=== PATIENT | female | born 1975 | race Caucasian/White ===

== ENCOUNTER 2023-03-12 08:56 | Outpatient (OUT) | payer OTHER, SELFPAY ==
[2023-03-12 09:42] LABS: Alanine Aminotransferase 19 U/L (14-59); Albumin Globulin Ratio 0.9; Albumin Level 3.4 g/dL (3.4-5.0); Alkaline Phosphatase 86 U/L (46-116); Anion Gap 10.1; Aspartate Amino Transferase 16 U/L (15-37); BUN Creatinine Ratio 23.7; Bilirubin Total 0.2 mg/dL (0.2-1.0); C Reactive Protein <0.2 mg/dL (<=1.0); Calcium 8.5 mg/dL (8.5-10.1); Carbon Dioxide 28.8 mmol/L (21.0-32.0); Chloride 103 mmol/L (98-107); Chol HDL Ratio 4.6; Cholesterol 181 mg/dL (<=200); Estimated GFR (African America >60 (>=60); Estimated GFR (Non-African Ame >60 (>=60); Glucose 90 mg/dL (74-106); HDL Cholesterol 39 mg/dL (40-60); Potassium 3.9 mmol/L (3.5-5.1); Sodium 138 mmol/L (136-145); Thyroid Stimulating Hormone 1.846 uIU/mL (0.358-3.740); Total Protein 7.4 g/dL (6.4-8.2); Triglycerides 151 mg/dL (<=150); VLDL CHOLESTEROL 30.2 mg/dL
[2023-03-12 11:34] LABS: Basophils Absolute Auto 0.1 10^3/uL (0.0-0.1); Basophils Percent Auto 0.9 % (0.2-2.0); Eosinophils Absolute Auto 0.1 10^3/uL (0.0-0.7); Eosinophils Percent Auto 2.1 % (0.9-7.0); Hemoglobin 12.3 g/dL (12.0-16.0); Immature Granulocytes Abs Auto 0.02 10^3/uL (0.00-0.03); Immature Granulocytes Pct Auto 0.3 % (0.0-0.5); Lymphocytes Absolute Auto 2.1 10^3/uL (1.2-3.8); Mean Corpuscular HGB Conc 32.4 g/dL (29.9-35.2); Mean Corpuscular Volume 86.4 fL (81.0-99.0); Mean Platelet Volume 9.3 fL (9.5-13.5); Monocytes Absolute Auto 0.4 10^3/uL (0.3-0.8); Monocytes Percent Auto 6.2 % (1.7-12.0); Neutrophils Percent Auto 59.5 % (43.0-75.0); Platelet Count 404 10^3/uL (150-450); Red Cell Distribution Width 13.4 % (11.0-15.0); White Blood Count 6.8 10^3/uL (4.0-11.0)
[2023-03-12 11:46] LABS: Erythrocyte Sedimentation Rate 51 mm/hr (<=20)
== END 2023-03-12 08:57 | disposition home or self-care (01) ==
LOC: LAB 09:00
PROVIDERS: PCP Family Medicine; Visit Provider Family Medicine
DX: Z00.00 Encounter for general adult medical examination without abnormal findings (principal); I10 Essential (primary) hypertension; M25.50 Pain in unspecified joint
CPT/HCPCS: 36415; 80053; 80061; 84443; 85025; 85652; 86140

== ENCOUNTER 2024-11-17 07:20 | Outpatient (OUT) | payer OTHER, SELFPAY ==
--- OUTSIDE RECORDS SUMMARY | 2024-11-17 07:25 | XMS_ITS | Encounter Summary ---
Author Organization [facility] Address [address] [place] [address] Care Team Providers Care Contract Modeler Name Role Phone Laure Leigh MD Primary Care Provider [phone] Reason for Visit * Reason Comments Med Refill Encounter Details Date Type Department Care Team (Late st Contact Info) Description 09/26/2023 Refill [facility] [address] [facility] [address] [place] [id number] Dc Arteaga DPM [address] [facility] [address] [place] [address] Achilles tendon pain Social History Tobacco Use Types Packs/Day Years Used Date Smoking Tobacco: Never Smokeless Tobacco: Never Alcohol Use Standard Drinks/Week Comments Yes 0 (1 standard drink = 0.6 oz pure alcohol) caffeine: occasional spark energy drink, coffee AUDIT-C Answer Date Recorded Q1: How often do you have a drink containing alc ohol? Monthly or less 07/15/2023 Q2: How many drinks containi ng alcohol do you have on a typical day when you are drinking? 1 or 2 07/15/2023 Q3: How often do you have si x or more drinks on one occasion? Never 07/15/2023 Comments Unknown Sex and Gender Information Value Date Recorded Sex Assigned at Not on file Legal Sex Female 7:25 PM EDT Gender Identity Not on file Sexual Orientation Not on file documented as of this encounter Miscellaneous Notes * Telephone Encounter - RT. Brayan Pagan - 09/26/2023 7:36 AM EDT Patient should contact office for refills. documented in this encounter Plan of Treatment Not on file documented as of this encounter Visit Diagnoses Diagnosis Achilles tendon pain documented in this encounter Care Teams Contract Modeler Relationship Specialty Start Date End Date Laure Leigh MD PCP - General Family Medicine 07/16/23 documented as of this encounter
--- OUTSIDE RECORDS SUMMARY | 2024-11-17 07:25 | XMS_ITS | Clinical Summary ---
Author Organization [facility] Address [address] [place] [address] Care Team Providers Care Forging Machine Operator Name Role Phone Laure Leigh MD Primary Care Provider [phone] Allergies Active Allergy Reactions Criticality Noted Date Comments Penicillins Anaphylaxis High 07/16/2023 Medications metoprolol succinate XL (Toprol-XL) 50 MG 24 hr tablet Take 50 mg by mouth Daily Do not crush or chew. Active Active Problems Problem Noted Date Diagnosed Date Fatty liver disease, nonalcoholic 07/16/2023 Family history of thyroid cancer 04/18/2016 Thyroid nodule 04/18/2016 Family History Medical History Relation Name Comments Heart disease Father Hypertension Father Cancer Maternal Grandmother Stroke Maternal Grandmother Hypertension Mother Thyroid cancer Mother Hypertension Other spouse Relation Name Status Comments Brother Alive Father Maternal Grandmother Mother Alive Other spouse Alive Sister Alive Son Alive x4 Social History Tobacco Use Types Packs/Day Years Used Date Smoking Tobacco: Never Smokeless Tobacco: Never Tobacco Cessation:Counseling Given: Not Answered Alcohol Use Standard Drinks/Week Comments Yes 0 [...] on file Sexual Orientation Not on file Last Filed Vital Signs Vital Sign Reading Time Taken Comments Blood Pressure 163/91 11/19/2023 11:39 AM EDT Pulse 94 11/19/2023 11:39 AM EDT Temperature 37.1 C (98.7 F) 12/11/2023 8:18 AM EDT Respiratory Rate - - Oxygen Saturation - - Inhaled Oxygen Concentration - - Weight 135 kg (297 lb) 04/18/2022 12:00 PM EST Height 162.6 cm (5' 4 ) 04/18/2022 12:00 PM EST Body Mass Index 50.98 04/18/2022 12:00 PM EST Plan of Treatment Health Maintenance Due Date Last Done Comments CT Colonography 1977 Colonoscopy 1977 Colorectal Cancer Screening 1977 FIT-DNA 1977 FIT 1977 FOBT 1977 Sigmoidoscopy 1977 Pap Smear 1998 Mammogram 04/17/2023 04/17/2022 Influenza Vaccine (#1) 2025 Cervical Cancer Screening 03/09/2027 HPV/Cotest 03/09/2027 03/09/2022 Procedures Procedure Name Priority Date/Time Associated Diagnosis Comments BI MAMMOGRAM SCREENING TOMOSYNTHESIS BILATERAL Routine 04/17/2022 Encounter for screening for malignant neoplasm of cervix Encounter for screening mammogram for malignant neoplasm of breast Encounter for gynecological examination (general) (routine) without abnormal findings Localized edema Right lower quadrant pain THINPREP TIS PAP REFLEX HPV MRNA E6/E7 (14433) Routine 03/09/2022 from Last 3 Months or Most Recently Relevant to Health Maintenance Results * Bilateral screening mammogram with tomosynthesis (04/17/2022) Anatomical Region Laterality Modality Breast Bilateral Mammography Impressions 04/17/2022 12:00 AM EST BIRADS 1 : NEGATIVE, NORMAL INTERVAL FOLLOW UP FOLLOW-UP: 12 months DENSITY: Scattered MAMMOGRAPHY IS VERY IMPORTANT TO YOUR HEALTH. THE CURRENT [employer] GUIDELINES RECOMMENDS ANNUAL MAMMOGRAPHY BEGINNING AT AGE 42 THIS FACILITY USES A REMINDER SYSTEM TO ENSURE ALL PATIENTS RECEIVE REMINDER NOTIFICATIONS AT THE APPROPRIATE TIME BASED ON THE RECOMMENDATIONS OF THIS EXAM. Board Certified Radiologist. Accredited by the ACR and FDA. Report reported and signed by Murtaza Wright on 04/21/2022 1300 Narrative 04/17/2022 12:00 AM EST PERFORMED AT [facility] LOCATION:[place] [id number] CLINICAL HISTORY: Screening Mammogram COMPARISON: Priors from 2019 TECHNIQUE: 2D and 3D mammogram imaging of both breasts was performed. RESULT: DENSITY: There are scattered areas of fibroglandular density. There is no suspicious mass, asymmetry, architectural distortion, or calcification. No significant change since the prior mammograms. Procedure Note CONVERSION, GENERIC - 11/10/2022 PERFORMED AT [facility] LOCATION:[place] [id number] CLINICAL HISTORY: Screening Mammogram COMPARISON: Priors from 2019 TECHNIQUE: 2D and 3D mammogram imaging of both breasts was performed. RESULT: DENSITY: There are scattered areas of fibroglandular density. There is no suspicious mass, asymmetry, architectural distortion, orcalcification. No significant change since the prior mammograms. IMPRESSION: BIRADS 1 : NEGATIVE, NORMAL INTERVAL FOLLOW UP FOLLOW-UP: 12 months DENSITY: Scattered MAMMOGRAPHY IS VERY IMPORTANT TO YOUR HEALTH. THE CURRENT [employer] GUIDELINES RECOMMENDS ANNUALMAMMOGRAPHY BEGINNING AT AGE 42 THIS FACILITY USES A REMINDER SYSTEM TO ENSURE ALL PATIENTS RECEIVEREMINDER NOTIFICATIONS AT THE APPROPRIATE TIME BASED ON THE RECOMMENDATIONS OF THIS EXAM. Board Certified Radiologist. Accredited by the ACR and FDA. Report reported and signed by Murtaza Wright on 04/21/2022 1300 David Clark MD IM BI PROCEDURES Final Result * THINPREP TIS PAP REFLEX HPV MRNA E6/E7 (25855) (03/09/2022) CLINICAL INFORMATION: None given [facility] LMP: NONE GIVEN [facility] PREV. PAP: NONE GIVEN [facility]. BX: NONE GIVEN [facility] SOURCE: None given [facility] STATEMENT OF ADEQUACY: SEE COMMENT [facility] Comment: Satisfactory for evaluation. Endocervical/transformation zone component absent. INTERPRETATION /RESULT: Negative for intraepithelial lesion or malignancy. [facility] COMMENT: SEE COMMENT [facility] Comment: This case could not be evaluated with computer assisted technology. The slide was manually screened according to routine procedures. CYTOTECHNOLOGI ST: SEE COMMENT [facility] Comment: NNO, CT(ASCP) CT screening location: [facility], [address] [place] [address]. COMMENT SEE COMMENT [facility] Comment: EXPLANATORY NOTE: The Pap is a screening test for cervical cancer. It is not a diagnostic test and is subject to false negative and false positive results. It is most reliable when a satisfactory sample, regularly obtained, is submitted with relevant clinical findings and history, and when the Pap result is evaluated along with historic and current clinical information. 03/09/2022 us David Clark MD [facility] Final Result [facility] from Last 3 Months or Most Recently Relevant to Health Maintenance Insurance [facility] Care Teams Forging Machine Operator Relationship Specialty Start Date End Date Laure Leigh MD PCP - General Family Medicine 07/16/23
--- OUTSIDE RECORDS SUMMARY | 2024-11-17 07:25 | XMS_ITS | Clinical Summary ---
Author Organization [facility] Address [id number] [address] [place] [address] Care Team Providers Care Aerosol Line Operator Name Role Phone Laure Leigh MD Primary Care Provider [phone] Allergies Active Allergy Reactions Criticality Noted Date Comments Acetaminophen Nausea 08/31/2023 Oxycodone Other (See Comments) 08/31/2023 Penicillins Anaphylaxis High 04/18/2016 Medications metoprolol succinate XL (TOPROL XL) 50 mg 24 hr tablet Take 1 tablet (50 mg total) by mouth in the morning. 08/31/2023 Active Active Problems Problem Noted Date Diagnosed Date Fatty liver disease, nonalcoholic 07/16/2023 Thyroid nodule 04/18/2016 Social History Tobacco Use Types Packs/Day Years Used Date Smoking Tobacco: Never Smokeless Tobacco: Never Tobacco Cessation:Counseling Given: Not Answered Alcohol Use Standard Drinks/Week Comments Yes 0 (1 standard drink = 0.6 oz pur e alcohol) occasional Childcare Answer Date Recorded Childcare Unknown 10/16/2018 Employment Answer Date Recorded Employment Unknown 10/16/2018 Hunger Screening Answer Date Recorded Within the past 12 months we worried whether our food would run out before we got money to buy more. Never True 03/11/2024 Within the past 12 months th e food we bought just didn't last and we didn't have money to get more. Never True 03/11/2024 Comments Unknown Sex and Gender Information Value Date Recorded Sex Assigned at Not on file Legal Sex Female 11:57 AM EDT Gender Identity Not on file Sexual Orientation Not on file Last Filed Vital Signs Vital Sign Reading Time Taken Comments Blood Pressure 172/81 06/09/2024 12:07 PM EST Pulse 92 06/09/2024 12:07 PM EST Temperature - - Respiratory Rate - - Oxygen Saturation - - Inhaled Oxygen Concentration - - Weight 134.7 kg (297 lb) 06/09/2024 12:07 PM EST Height 160 cm (5' 3 ) 03/11/2024 10:08 AM EST Body Mass Index 52.61 03/11/2024 10:08 AM EST Plan of Treatment Health Maintenance Due Date Last Done Comments Depression Screening 1989 Adult BMI Follow Up Plan 1995 DTaP,Tdap and Td Vaccines (1 - Tdap) 1996 Pap Smear 1998 COVID-19 Vaccine ( season) 2024, 12/30/2020 Influenza Vaccine 01/05/2025 Adult BMI Screening 06/09/2025 06/09/2024 Tobacco Screening 06/19/2025 06/19/2024 Medical Devices Not on file Care Teams Aerosol Line Operator Relationship Specialty Start Date End Date Laure Leigh MD [address] [place] [address] PCP - General Family Medicine 03/11/24
--- OUTSIDE RECORDS SUMMARY | 2024-11-17 07:25 | XMS_ITS | Clinical Summary ---
Author Organization [facility] Address [address] [place] [address] Care Team Providers Care City Superintendent Name Role Phone Laure Leigh MD Primary Care Provider [phone] Allergies Active Allergy Reactions Criticality Noted Date Comments Penicillins Anaphylaxis 04/18/2016 Medications spironolactone (ALDACTONE) 25 mg tablet Take 25 mg by mouth once daily. 12/24/2019 Active metoprolol succinate ER (TOPROL XL) 25 mg 24 hr tablet Take 25 mg by mouth once daily. 12/24/2019 Active meloxicam (MOBIC) 15 mg tablet TAKE 1 TABLET BY MOUTH EVERY DAY 30 tablet 06/02/2020 Active Active Problems Problem Noted Date Diagnosed Date Family history of thyroid cancer 04/18/2016 Family history of thyroid disease 04/18/2016 Thyroid nodule 04/18/2016 Family History Medical History Relation Comments Hypertension Father goiter Maternal Grandmother thyroid cancer Mother thyroid cancer Other thyroid cancer Sister Relation Status Comments Father Alive Maternal Grandmother Mother Alive Other Alive Sister Alive Social History Tobacco Use Types Packs/Day Years Used Date Smoking Tobacco: Never Alcohol Use Standard Drinks/Week Comments Yes 0 (1 standard drink = 0.6 oz pur e alcohol) occasionally Area Deprivation Index Answer Date Juan A rded National Score (1-100), lower number is lower ri sk Not on file 04/15/2020 State Score (1-10), lower number is lower risk N ot on file 04/15/2020 Data from: https://www.neighborhoodatlas.medicine.[facility].edu/. Last address used for calculation Not on file 04/15/2020 Comments No Sex and Gender Information Value Date Recorded Sex Assigned at Not on file Legal Sex Female 1:06 PM EST Gender Identity Not on file Sexual Orientation Not on file Last Filed Vital Signs Vital Sign Reading Time Taken Comments Blood Pressure 147/93 04/04/2017 11:19 AM EST Pulse 99 04/04/2017 11:19 AM EST Temperature - - Respiratory Rate - - Oxygen Saturation - - Inhaled Oxygen Concentration - - Weight 126.6 kg (279 lb) 01/28/2020 1:34 PM EDT Height 160 cm (5' 3 ) 01/28/2020 1:34 PM EDT Body Mass Index 49.42 01/28/2020 1:34 PM EDT Plan of Treatment Health Maintenance Due Date Last Done Comments Anxiety Screening 1995 Depression Screening 1995 HIV Screening 1995 Hepatitis C Screening 1995 DTaP,Tdap,Td Vaccine (1 - Tdap) 1996 Hepatitis B Vaccine (1 of 3 - 19+ 3-dose series) 03/21 Cervical Cancer Screening [address] Colonography 2022 Cologuard (FIT-DNA) 2022 Colonoscopy 2022 Colorectal Cancer Screening 2022 Diabetes Screening 2022 04/18/2016 Fecal Occult Blood 2022 Lipid Screening 2022 04/18/2016 Sigmoidoscopy 2022 Covid-19 Vaccine ( season) 2024 Influenza Vaccine (#1) 2025 Procedures Procedure Name Priority Date/Time Associated Diagnosis Comments COMPREHENSIVE METABOLIC PANEL Routine 04/18/2016 2:44 PM EST Family history of thyroid cancer LIPID PANEL, FASTING Routine 04/18/2016 2:44 PM EST Family history of thyroid cancer from Last 3 Months or Most Recently Relevant to Health Maintenance Results * (ABNORMAL) LIPID PANEL BASIC (04/18/2016 2:44 PM EST) Triglyceride 130 30 - 149 mg/dL 04/18/2016 5:59 PM EST [facility] Cholesterol, Total 183 100 - 199 mg/dL 04/18/2016 5:59 PM EST [facility] HDL Cholesterol 36(L) >55 mg/dL 6 5:[address] [facility] VLDL Cholesterol 26 6 - 40 mg/dL 04/18/2016 5:[address] [facility] LDL Cholesterol, Calculated 121 60 - 129 mg/dL 04/18/2016 5:[address] [facility] Fasting Time 3 hrs 04/18/2016 2:[address] [facility] TC:HDL Ratio 5.08(H) 1.00 - 5.00 04/18/2016 5:[address] [facility] LDL:HDL Ratio 3.36 0.50 - 3.55 04/18/2016 5:[address] [facility] Non HDL Cholesterol 147 90 - 159 mg/dL 04/18/2016 5:[address] [facility] Blood specimen (specimen) BLOOD SPECIMEN / Unknown 04/18/2016 2:44 PM EST 04/18/2016 2:45 PM EST us Yissel Gonzales MD LABORATORY Final Result [facility] [address] [place] [address] * COMP METABOLIC PANEL (04/18/2016 2:44 PM EST) Protein, Total 7.2 6.3 - 8.0 g/dL 04/18/2016 5:[address] [facility] Albumin 4.2 3.9 - 4.9 g/dL 04/18/2016 5:[address] [facility] Calcium 9.2 8.6 - 10.0 mg/dL 04/18/2016 5:59 PM [facility] Bilirubin, Total 0.3 0.2 - 1.3 mg/dL 04/18/2016 5:[address] [facility] Alkaline Phosphatase 71 32 - 117 U/L 04/18/2016 5:[address] [facility] AST 18 13 - 35 U/L 04/18/2016 5:[address] [facility] Glucose 74 74 - 99 mg/dL 04/18/2016 5:[address] [facility] BUN 13 7 - 21 mg/dL 04/18/2016 5:[address] [facility] Creatinine 0.61 0.58 - 0.96 mg/dL 04/18/2016 5:[address] [facility] Sodium 140 136 - 144 mmol/L 04/18/2016 5:[address] [facility] Potassium 3.8 3.7 - 5.1 mmol/L 04/18/2016 5:[address] [facility] Chloride 99 97 - 105 mmol/L 04/18/2016 5:[address] [facility] CO2 26 22 - 30 mmol/L 04/18/2016 5:[address] [facility] Anion Gap 15 9 - 18 mmol/L 04/18/2016 5:59 PM [facility] ALT 12 7 - 38 U/L 04/18/2016 5:59 PM [facility] eGFR- >60 04/18/2016 5:59 PM [facility] eGFR-All Other Races >60 . 04/18/2016 5:[address] [facility] Comment: eGFR (Estimated GFR) Units of measure: mL/min/1.73 meters squared eGFR is derived from the reexpressed MDRD Study equation using the following parameters: serum creatinine, age, gender and race. The creatinine assay has been calibrated to be traceable to IDMS. An eGFR <60 mL/min/1.73m2 for >3 months is consistent with chronic kidney disease. Refer to KDOQI guidelines for clinical interpretation. In patients with unstable renal function, e.g. those with acute kidney injury, the eGFR may not accurately reflect actual GFR. Blood specimen (specimen) BLOOD SPECIMEN / Unknown 04/18/2016 2:44 PM EST 04/18/2016 2:45 PM EST us Yissel Gonzales MD LABORATORY Final Result [facility] [address] [place] [address] from Last 3 Months or Most Recently Relevant to Health Maintenance Care Teams City Superintendent Relationship Specialty Start Date End Date Laure Leigh MD [address] [place] [address] PCP - General Family Medicine 03/28/16
[2024-11-17 08:47] LABS: Hematocrit 38.1 % (36.0-48.0); Hemoglobin 12.4 g/dL (12.0-16.0); Immature Granulocytes Abs Auto 0.01 10^3/uL (0.00-0.03); Immature Granulocytes Pct Auto 0.2 % (0.0-0.5); Lymphocytes Absolute Auto 1.9 10^3/uL (1.2-3.8); Mean Corpuscular HGB Conc 32.5 g/dL (29.9-35.2); Mean Corpuscular Hemoglobin 27.4 pg (26.7-34.0); Mean Corpuscular Volume 84.3 fL (81.0-99.0); Platelet Count 368 10^3/uL (150-450); Red Blood Count 4.52 10^6/uL (4.20-5.40); White Blood Count 5.9 10^3/uL (4.0-11.0)
[2024-11-17 10:30] LABS: Alanine Aminotransferase 27 U/L (14-59); Albumin Globulin Ratio 0.9; Albumin Level 3.3 g/dL (3.4-5.0); Alkaline Phosphatase 83 U/L (46-116); Anion Gap 11.0; Aspartate Amino Transferase 21 U/L (15-37); Blood Urea Nitrogen 17.0 mg/dL (7.0-18.0); Calcium 8.8 mg/dL (8.5-10.1); Carbon Dioxide 29.3 mmol/L (21.0-32.0); Chloride 104 mmol/L (98-107); Cholesterol 162 mg/dL (<=200); Estimated GFR (African America >60 (>=60 mL/min/1.73m^2); Estimated GFR (Non-African Ame >60 (>=60 mL/min/1.73m^2); Globulin 3.8 g/dL; Glucose 100 mg/dL (74-106); HDL Cholesterol 41 mg/dL (40-60); Potassium 4.3 mmol/L (3.5-5.1); Sodium 140 mmol/L (136-145); Thyroid Stimulating Hormone 1.718 uIU/mL (0.358-3.740); Total Protein 7.1 g/dL (6.4-8.2); Triglycerides 77 mg/dL (<=150); VLDL CHOLESTEROL 15.4 mg/dL
== END 2024-11-17 07:21 | disposition home or self-care (01) ==
LOC: LAB 07:24
PROVIDERS: PCP Family Medicine; Visit Provider Family Medicine
DX: Z00.00 Encounter for general adult medical examination without abnormal findings (principal); I10 Essential (primary) hypertension; E03.9 Hypothyroidism, unspecified
CPT/HCPCS: 36415; 80053; 80061; 84439; 84443; 85025